=== PATIENT | female | born 1990 | race Caucasian/White ===

== ENCOUNTER 2017-10-05 15:45 | Outpatient (CLI) | payer BC ==
[~2017-10-05 15:45] MED LIST: CAMILA0.35 MG PO; ENDOCET 5-3251 EACH PO; IBUPROFEN800 MG PO; OXAYDO5 MG PO; PRENATAL TABLE1 EAC3 PO; UNISOM SLEEP AI25 MG PO; ZANTAC150 MG PO; ZANTAC75 M1 PO
[2017-10-05 16:27] VITALS: BP 136/82
== END 2017-10-05 20:05 | disposition home or self-care (01) ==
LOC: LDRP-OP 15:45 → 2WEST 15:46 → LDRP-OP 11-26 11:46
DX: O26.893 Other specified pregnancy related conditions, third trimester (principal); R11.2 Nausea with vomiting, unspecified; Z3A.37 37 weeks gestation of pregnancy; O34.219 Maternal care for unspecified type scar from previous cesarean delivery; O99.210 Obesity complicating pregnancy, unspecified trimester
CPT/HCPCS: 59025; G0378; J2405

== ENCOUNTER 2017-10-18 20:30 | Inpatient (IN) | payer BC ==
[~2017-10-18] VITALS: Ht 162.6 cm; Wt 112.2 kg
[2017-10-19] VITALS (7 sets, daily range): BP systolic 116–132; BP diastolic 60–80
[2017-10-19 06:40] LABS: AMPHETAMINE NEGATIVE (500 ng/mL); BARBITURATES NEGATIVE (200 ng/mL); BENZODIAZEPINES NEGATIVE (150 ng/mL); BUPRENORPHINE NEGATIVE (10 ng/mL); COCAINE NEGATIVE (150 ng/mL); METHADONE NEGATIVE (200 ng/mL); METHAMPHETAMINE NEGATIVE (500 ng/mL); OPIATES (MORPHINE) NEGATIVE (100 ng/mL); OXYCODONE NEGATIVE (100 ng/mL); PHENCYCLIDINE NEGATIVE (25 ng/mL); PROPOXYPHENE NEGATIVE (300 ng/mL); THC CANNABINOIDS NEGATIVE (50 ng/mL); TRICYCLIC ANTIDEPRESSANTS NEGATIVE (300 ng/mL)
[2017-10-19] MEDS ORDERED: IBUPROFEN800 MG PO (09:30)
[2017-10-19] MEDS ORDERED: ENDOCET 5-3251 EACH PO (09:30)
[2017-10-20 02:39] VITALS: BP 124/70
[2017-10-20 06:08] LABS: BASOPHIL (%) 0.2 % (0-1); EOSINOPHIL (%) 1.4 % (0-5); EOSINOPHIL COUNT 0.1 K/uL (0-0.3); HEMOGLOBIN 11.3 G/DL (11.9-15.5); IMMATURE GRANULOCYTE (%) 0.4 % (0.0-0.7); LYMPHOCYTE (%) 21.2 % (15-42); MCH 30.5 PG (29.0-34.0); MCHC 33.2 G/DL (30.0-36.0); MCV 91.6 FL (83-99); MONOCYTE (%) 8.3 % (3-12); MONOCYTE COUNT 0.8 K/uL (0-0.8); NEUTROPHIL (%) 68.5 % (45-76); NEUTROPHIL COUNT 6.5 K/uL (1.8-6.4); PLATELET COUNT 118 K/uL (156-360); RBC DIS.WIDTH-SD 46.7 % (39-53); RED BLOOD COUNT 3.71 M/uL (3.80-5.20); WHITE BLOOD COUNT 9.4 K/uL (4.1-10.2)
[2017-10-20 19:20] VITALS: BP 118/56
[2017-10-20 22:36] VITALS: BP 125/81
[2017-10-21 07:33] VITALS: BP 132/64
[2017-10-21 15:37] VITALS: BP 127/59
[2017-10-22 08:01] VITALS: BP 123/64
== END 2017-10-22 16:13 | disposition home or self-care (01) | DRG 765 ==
LOC: ENRESERV 20:30 → CANRESERV 20:30 → 2WEST 10-19 05:23 → 2SOUTH 10-19 12:16 → 2WEST 10-22 16:13
PROVIDERS: Obstetrics & Gynecology Gynecology
DX: O34.211 Maternal care for low transverse scar from previous cesarean delivery (principal); Z68.41 Body mass index [BMI] 40.0-44.9, adult; E66.01 Morbid (severe) obesity due to excess calories; Z37.0 Single live birth; Z30.2 Encounter for sterilization; Z3A.39 39 weeks gestation of pregnancy; O99.214 Obesity complicating childbirth; N83.8 Other noninflammatory disorders of ovary, fallopian tube and broad ligament
CPT/HCPCS: 36415; 85025; 86780; 86850; 86900; 86901; 88302; J0690; J1100; J1885; J2274; J2405; J3010; J7120; S0020